=== PATIENT | male | born 1960 | race Caucasian/White ===

== ENCOUNTER 2020-05-17 18:38 | Emergency (ER) | payer MEDICAID, SELFPAY ==
[~2020-05-17] VITALS: Ht 167.6 cm; Wt 81.6 kg
[2020-05-17 18:57] VITALS: BP 195/88
--- NOTE | 2020-05-17 19:20 | NUR ---
60 Y/O MALE PRESENTED TO ED C/O SOB . PT STATES HE WORKS A [employer] AND THINKS THAT MAY BE ONE OF THE CAUSES FOR HIS BREATHING ISSUE. PT RR EVEN AND UNLABORED, COUGH PRESENT, A/O X 4 , BL CRACKLES ON BASES OF LUNGS. PT SAO2 98%. PT SITTING IN TENT , NO DISTRESS NOTED AT THIS TIME. PT AWAITING MEDICAL EVALUATION. PMH: HTN (PT CURRENTLY DOES NOT TAKE MEDICATIONS)
--- NOTE | 2020-05-17 19:20 | NUR ---
REPORT RECEIVED FROM JEAN MARIE LEDESMA FOR CONTINUITY OF CARE.
--- NOTE | 2020-05-17 19:40 | NUR ---
DR. LEE IN TENT FOR PT MEDICAL EVALUATION.
[2020-05-17 20:23] LABS: BASOPHILS # (AUTO) 0.1 K/uL (0.00-0.22); BASOPHILS % (AUTO) 1.3 % (0.0-2.0); EOSINOPHILS # (AUTO) 0.4 K/uL (0-0.4); EOSINOPHILS % (AUTO) 4.8 % (0.0-4.0); HEMOGLOBIN 17.1 g/dL (12.0-18.0); LYMPHOCYTES # (AUTO) 1.2 K/uL (2.0-11.5); LYMPHOCYTES % (AUTO) 15.2 % (20.5-51.1); MEAN CORPUSCULAR HEMOGLOBIN 31 pg (27-31); MEAN CORPUSCULAR HGB CONC 35 g/dL (33-37); MEAN CORPUSCULAR VOLUME 89.3 fL (80-94); MONOCYTES # (AUTO) 0.8 K/uL (0.8-1.0); MONOCYTES % (AUTO) 9.6 % (1.7-9.3); NEUTROPHILS # (AUTO) 5.7 K/uL (1.8-7.7); NEUTROPHILS % (AUTO) 69.1 % (42.2-75.2); PLATELET COUNT (AUTO) 211 K/uL (140-450); RED BLOOD CELL COUNT(AUTO) 5.48 MIL/uL (4.20-6.10); RED CELL DISTRIBUTION WIDTH 13.4 % (11.6-13.7); WHITE BLOOD COUNT (AUTO) 8.2 K/uL (4.8-10.8)
[2020-05-17 20:31] LABS: ALBUMIN 3.7 g/dL (3.4-5.0); ANION GAP 14.1 (8-16); CARBON DIOXIDE 27.4 mmol/L (21-32); POTASSIUM 4.5 mmol/L (3.5-5.1); TOTAL BILIRUBIN 0.5 mg/dL (0.0-1.0)
--- NOTE | 2020-05-17 21:25 | NUR ---
COVID [facility] COLLECTED
--- NOTE | 2020-05-17 21:39 | NUR ---
Patient discharged with v/s stable. Written and verbal after care instructions given and explained. Patient alert, oriented and verbalized understanding of instructions. Ambulatory with steady gait. All questions addressed prior to discharge. ID band removed. Patient advised to follow up with PMD. Rx of AMLOPDIPINE AND ALBUTEROL given. Patient educated on indication of medication including possible reaction and side effects. Opportunity to ask questions provided and answered.
[2020-05-17 22:06] VITALS: BP 188/111
== END 2020-05-17 22:06 | disposition home or self-care (01) ==
LOC: MED 18:38
DX: I10 Essential (primary) hypertension (principal); J20.9 Acute bronchitis, unspecified
CPT/HCPCS: 36415; 71045; 80053; 83880; 84484; 85025; 93005; 99285

== ENCOUNTER 2020-11-03 12:33 | Emergency (ER) | payer SELFPAY ==
[~2020-11-03] VITALS: Ht 167.6 cm; Wt 123.2 kg
[2020-11-03 12:50] VITALS: BP 200/97
--- NOTE | 2020-11-03 13:54 | NUR ---
60 Y/O M C/O DIZZY SPELLS AND SOB THAT HAS LASTED FOR A MO. NO PAIN AT THIS TIME. PT HAS HAD SOB WITH PRODUCTIVE COUGH, GREEN THICK MUCOUS. WHEEZING EXPIRATION AND INSPIRATION. AMLODIPINE 5MG PO Q DAY AND ALBUTEROL PRN RX AT HOME. HAS NOT HAD ACCESS TO MEDS AT HOME. PMH: HTN. GI/ WNL. DENIES ANY RECENT CONTACT WITH ANYONE COVID POSTIVE. NKA. PT WAS PLACED ON BP, PULSE OXIMETRY, AND CARDIAC MONITORING.
[2020-11-03 14:13] LABS: BASOPHILS # (AUTO) 0.1 K/uL (0.00-0.22); BASOPHILS % (AUTO) 1.4 % (0.0-2.0); EOSINOPHILS # (AUTO) 0.3 K/uL (0-0.4); EOSINOPHILS % (AUTO) 4.1 % (0.0-4.0); HEMATOCRIT 44.8 % (36-52); HEMOGLOBIN 15.5 g/dL (12.0-18.0); LYMPHOCYTES # (AUTO) 1.1 K/uL (2.0-11.5); LYMPHOCYTES % (AUTO) 16.8 % (20.5-51.1); MEAN CORPUSCULAR HEMOGLOBIN 31 pg (27-31); MEAN CORPUSCULAR HGB CONC 35 g/dL (33-37); MEAN CORPUSCULAR VOLUME 88.4 fL (80-94); MONOCYTES # (AUTO) 0.6 K/uL (0.8-1.0); MONOCYTES % (AUTO) 8.9 % (1.7-9.3); NEUTROPHILS # (AUTO) 4.6 K/uL (1.8-7.7); NEUTROPHILS % (AUTO) 68.8 % (42.2-75.2); PLATELET COUNT (AUTO) 212 K/uL (140-450); RED BLOOD CELL COUNT(AUTO) 5.06 MIL/uL (4.20-6.10); WHITE BLOOD COUNT (AUTO) 6.7 K/uL (4.8-10.8)
[2020-11-03 14:30] LABS: ALBUMIN 3.7 g/dL (3.4-5.0); ANION GAP 10.9 (8-16); CARBON DIOXIDE 29.2 mmol/L (21-32); CREATININE 1.1 mg/dL (0.6-1.3); POTASSIUM 4.1 mmol/L (3.5-5.1); TOTAL BILIRUBIN 0.4 mg/dL (0.0-1.0)
[2020-11-03 14:59] VITALS: BP 110/52
--- NOTE | 2020-11-03 15:08 | NUR ---
Patient discharged with v/s stable. Written and verbal after care instructions given and explained. Patient alert, oriented and verbalized understanding of instructions. Ambulatory with steady gait. All questions addressed prior to discharge. ID band removed. Patient advised to follow up with PMD. Rx of AMLODIPINE given. Patient educated on indication of medication including possible reaction and side effects. Opportunity to ask questions provided and answered.
== END 2020-11-03 15:08 | disposition home or self-care (01) ==
LOC: MED 12:33
DX: I10 Essential (primary) hypertension (principal); R55 Syncope and collapse; Z76.0 Encounter for issue of repeat prescription; Z98.890 Other specified postprocedural states
CPT/HCPCS: 36415; 70450; 71045; 80053; 84484; 85025; 93005; 99285